=== PATIENT | female | born 1990 | race Two or more races ===

== ENCOUNTER 2020-05-16 07:04 | Day surgery (SDC) | payer OTHER ==
[~2020-05-16] VITALS: Ht 157.5 cm; Wt 147.0 kg
[~2020-05-16 07:04] MED LIST: CETI10CH PO; CITA20TA6 PO; LIDOCAINE 1% MDV 20ML VIAL SQ PRN; PSEU30TA85 PO
[2020-05-16] MEDS ORDERED: LR 1,000 ML IV ONE (08:00)
[2020-05-16] MEDS ORDERED: ONDANSETRON 4MG/2ML VIAL As Ordered ONE ×2 (08:13→09:26)
[2020-05-16] MEDS ORDERED: dexameTHASONE 4 MG/ML 1ML VIAL (J1100 PER 1MG) As Ordered ONE (08:13)
[2020-05-16] MEDS ORDERED: LIDOCAINE 2% 100MG/5ML SDV (FOR ANES.) As Ordered ONE (08:13)
[2020-05-16] MEDS ORDERED: BUPIVACAINE/EPIN 0.25% 30 ML VIAL As Ordered ONE (08:13)
[2020-05-16] MEDS ORDERED: MIDAZOLAM INJ 2MG/2ML VIAL (J2250 PER 1MG) As Ordered ONE (08:13)
[2020-05-16] MEDS ORDERED: LIDOCAINE W/EPINEPHRINE 1% 20ML VIAL As Ordered ONE (08:13)
[2020-05-16] MEDS ORDERED: SUCCINYLCHOLINE 100 MG/5 ML SYRINGE (J0330) As Ordered ONE (08:13)
[2020-05-16] MEDS ORDERED: ROCURONIUM BROMIDE 50 MG/5 ML VIAL As Ordered ONE (08:13)
[2020-05-16] MEDS ORDERED: propofoL 200 MG/20 ML VIAL As Ordered ONE (08:13)
[2020-05-16] MEDS ORDERED: fentaNYL 100 MCG/2 ML INJECTION (J3010) As Ordered ONE ×3 (08:14→09:27)
[2020-05-16] MEDS ORDERED: BUPIVACAINE HCL 0.5% 10ML VIAL As Ordered ONE (08:15)
[2020-05-16] MEDS ORDERED: SUGAMMADEX SODIUM 500 MG/5 ML VIAL (BRIDION) As Ordered ONE (08:49)
[2020-05-16] MEDS ORDERED: LACRILUBE (AKWA TEARS) OPHTH OINT 3.5 GM As Ordered ONE (09:23)
[2020-05-16] MEDS ORDERED: METOCLOPRAMIDE INJ 10MG/2ML VIAL (J2765 PER 1) As Ordered ONE (09:27)
[2020-05-16] MEDS ORDERED: oxyCODONE 5MG TAB As Ordered ONE (09:27)
[2020-05-16] MEDS ORDERED: MEPERIDINE INJ 25 MG/ML VIAL (J2175) IV PRN (09:30)
[2020-05-16] MEDS ORDERED: LR 1,000 ML IV SCH ×2 (09:30)
[2020-05-16] MEDS ORDERED: ONDANSETRON 4MG/2ML VIAL IV PRN (09:30)
[2020-05-16] MEDS ORDERED: NORCO, ANEXSIA 5/325MG TABLET (HYDROcodone/ACETAMINOPHEN) PO PRN (09:30)
[2020-05-16] MEDS: oxyCODONE 5MG TAB PO PRN ×2 (09:31→09:59)
[2020-05-16] MEDS: fentaNYL 100 MCG/2 ML INJECTION (J3010) IV PRN ×2 (09:32→09:52)
[2020-05-16] MEDS ORDERED: METOCLOPRAMIDE INJ 10MG/2ML VIAL (J2765 PER 1) IV PRN (09:45)
--- NOTE | 2020-05-16 11:07 | RO ---
OPERATIVE NOTE DATE OF OPERATION: 05/16/2020 PREOPERATIVE DIAGNOSIS: Chronic tonsillitis. POSTOPERATIVE DIAGNOSIS: Chronic tonsillitis. PROCEDURE: Tonsillectomy. SURGEON: Yanely Rolle M.D. DESCRIPTION OF PROCEDURE: Under general anesthesia with the patient intubated, a Wild[employer] Herbert mouth gag was inserted. The tonsillar airway was infiltrated with Lidocaine and Marcaine. Using cautery, I dissected the tonsil free from its bed on both sides. Any vessels were cauterized using the cautery. The patient tolerated the procedure well. No blood loss. The patient was extubated and transferred to the recovery room in excellent condition.
[2020-05-16 11:10] VITALS: BP 124/63
== END 2020-05-16 11:10 | disposition home or self-care (01) ==
LOC: M SDC 07:04
PROVIDERS: ATTEND Otolaryngology
DX: J35.01 Chronic tonsillitis (principal); K21.9 Gastro-esophageal reflux disease without esophagitis; G43.909 Migraine, unspecified, not intractable, without status migrainosus; F41.9 Anxiety disorder, unspecified; Z79.899 Other long term (current) drug therapy
CPT/HCPCS: 42826; 88302; J0330; J1100; J2250; J2405; J2765; J3010